=== PATIENT | male | born 1950 | race Caucasian/White ===

== ENCOUNTER 2017-10-21 12:50 | Emergency (ER) | payer OTHER, MEDICARE ==
--- NOTE | 2017-10-21 14:00 | ER Document Report ---
ED Medical Screen (RME) - General Chief Complaint: Leg Swelling Stated Complaint: LEG PROBLEM Time Seen by Provider: 10/21/17 13:54 Notes: 67-year-old male patient who moved down here just recently. Reports New Year's Silva he bumped his right anterior mattson with a moving [place] a couple times. Since then he has developed pain, redness, swelling. He was in urgent care today and sent to the emergency room to rule out blood clots. There is no history of fever. TRAVEL OUTSIDE OF THE [place] IN LAST 30 DAYS: No - Related Data Allergies/Adverse Reactions: No Known Allergies Allergy (Verified 10/21/17 12:51) Home Medications: Current Home Medications Aspirin [Aspirin 81 mg Chewable Tablet] 81 mg PO DAILY 10/21/17 [History] Atorvastatin Calcium [Lipitor 80 mg Tablet] 80 mg PO DAILY 10/21/17 [History] Metoprolol Tartrate 12.5 mg PO BID 10/21/17 [History] Omeprazole 20 mg PO QAM 10/21/17 [History] Pyridoxine HCl 50 mg PO DAILY 10/21/17 [History] Physical Exam - Vital signs Vitals: Temp Pulse Resp BP Pulse Ox 98.3 F 74 14 167/78 H 98 10/21/17 12:55 10/21/17 12:55 10/21/17 12:55 10/21/17 12:55 10/21/17 12:55 Course - Vital Signs Vital signs: Temp Pulse Resp BP Pulse Ox 98.3 F 74 14 167/78 H 98 10/21/17 12:55 10/21/17 12:55 10/21/17 12:55 10/21/17 12:55 10/21/17 12:55
[2017-10-21 14:27] LABS: ABSOLUTE BASOPHILS # (AUTO) 0.1 10^3/uL (0.0-0.2); ABSOLUTE EOSINOPHILS # (AUTO) 0.2 10^3/uL (0.0-0.6); ABSOLUTE MONOCYTES (AUTO) 0.5 10^3/uL (0.1-1.4); ABSOLUTE NEUT (AUTO) 3.9 10^3/uL (1.7-8.2); EOSINOPHILS % (AUTO) 3.5 % (0-6); HEMATOCRIT 45.7 % (37.9-51.0); LYMPHOCYTES % (AUTO) 29.4 % (13-45); MEAN CORPUSCULAR HEMOGLOBIN 34.1 pg (27.0-33.4); MEAN CORPUSCULAR VOLUME 98 fl (80-97); MONOCYTES % (AUTO) 7.7 % (3-13); PLATELET COUNT 208 10^3/uL (150-450); RED BLOOD COUNT 4.68 10^6/uL (4.35-5.55); RED CELL DISTRIBUTION WIDTH 12.8 % (11.5-14.0); SEGMENTED NEUTROPHILS % (AUTO) 58.4 % (42-78); TOTAL CELLS COUNTED % (AUTO) 100 %; WHITE BLOOD COUNT 6.7 10^3/uL (4.0-10.5)
[2017-10-21 14:44] LABS: ALANINE AMINOTRANSFERASE 41 U/L (21-72); ALBUMIN 4.6 g/dL (3.5-5.0); ALKALINE PHOSPHATASE 86 U/L (38-126); ANION GAP 10 (5-19); ASPARTATE AMINO TRANSFERASE 32 U/L (17-59); BILIRUBIN,DIRECT 0.4 mg/dL (0.0-0.4); BILIRUBIN,TOTAL 1.9 mg/dL (0.2-1.3); BLOOD UREA NITROGEN 11 mg/dL (7-20); CALCIUM 10.2 mg/dL (8.4-10.2); CARBON DIOXIDE 32 mmol/L (22-30); CHLORIDE 100 mmol/L (98-107); GLUCOSE 112 mg/dL (75-110); POTASSIUM 4.6 mmol/L (3.6-5.0); SODIUM 141.6 mmol/L (137-145); TOTAL PROTEIN 7.7 g/dL (6.3-8.2)
--- NOTE | 2017-10-21 15:25 | ER Document Report ---
ED Extremity Problem, Lower - General Chief Complaint: Leg Swelling Stated Complaint: LEG PROBLEM Time Seen by Provider: 10/21/17 13:54 Notes: Patient is a 67-year-old male, past medical history hypertension, hyperlipidemia , presents with 2 days of right mattson pain and calf swelling. He bumped his right mattson against a moving [place] last week. He was in the urgent care today and sent to the ER to rule out a possible blood clot. He denies numbness, tingling, difficulty walking, open wounds, history of blood clots, fevers, chest pain, shortness of breath or hemoptysis. TRAVEL OUTSIDE OF THE [place] IN LAST 30 DAYS: No - Related Data Allergies/Adverse Reactions: No Known Allergies Allergy (Verified 10/21/17 12:51) Home Medications: Current Home Medications Aspirin [Aspirin 81 mg Chewable Tablet] 81 mg PO DAILY 10/21/17 [History] Atorvastatin Calcium [Lipitor 80 mg Tablet] 80 mg PO DAILY 10/21/17 [History] Metoprolol Tartrate 12.5 mg PO BID 10/21/17 [History] Omeprazole 20 mg PO QAM 10/21/17 [History] Pyridoxine HCl 50 mg PO DAILY 10/21/17 [History] Past Medical History - General Information source: Patient - Social History Smoking Status: Never Smoker Chew tobacco use (# tins/day): No Frequency of alcohol use: None Drug Abuse: None Family History: Reviewed & Not Pertinent Patient has suicidal ideation: No Patient has homicidal ideation: No - Past Medical History Cardiac Medical History: Reports: Hx Hypercholesterolemia, Hx Hypertension Renal/ Medical History: Denies: Hx Peritoneal Dialysis Musculoskeltal Medical History: Reports Hx Arthritis Past Surgical History: Reports: Hx Appendectomy, Hx Cholecystectomy, Hx Orthopedic Surgery - hip 2017 Review of Systems - Review of Systems Notes: REVIEW OF SYSTEMS: CONSTITUTIONAL: -fevers, -chills EENT: -eye pain, -difficulty swallowing, -nasal congestion CARDIOVASCULAR: -chest pain, -syncope. RESPIRATORY: -cough, -SOB GASTROINTESTINAL: -abdominal pain, -nausea, -vomiting, -diarrhea GENITOURINARY: -dysuria, -hematuria MUSCULOSKELETAL: +right calf pain and swelling, -back pain, -neck pain SKIN: -rash or skin lesions. HEMATOLOGIC: -easy bruising or bleeding. LYMPHATIC: -swollen, enlarged glands. NEUROLOGICAL: -altered mental status or loss of consciousness, -headache, - neurologic symptoms PSYCHIATRIC: -anxiety, -depression. ALL OTHER SYSTEMS REVIEWED AND NEGATIVE. Physical Exam - Vital signs Vitals: Temp Pulse Resp BP Pulse Ox 98.3 F 74 14 167/78 H 98 10/21/17 12:55 10/21/17 12:55 10/21/17 12:55 10/21/17 12:55 10/21/17 12:55 - Notes Notes: PHYSICAL EXAMINATION: GENERAL: Well-appearing, well-nourished and in no acute distress. HEAD: Atraumatic, normocephalic. EYES: Pupils equal round and reactive to light, extraocular movements intact, sclera anicteric, conjunctiva are normal. ENT: nares patent, oropharynx clear without exudates. Moist mucous membranes. NECK: Normal range of motion, supple without lymphadenopathy LUNGS: Breath sounds clear to auscultation bilaterally and equal. No wheezes rales or rhonchi. HEART: Regular rate and rhythm without murmurs ABDOMEN: Soft, nontender, normoactive bowel sounds. No guarding, no rebound. No masses appreciated. EXTREMITIES: Swelling of right calf with mild pretibial erythema. Strong DP and PT pulses, sensation intact. Able to wiggle toes. Normal range of motion. No cyanosis. NEUROLOGICAL: Cranial nerves grossly intact. Normal speech, normal gait. Normal sensory and motor exams. PSYCH: Normal mood, normal affect. SKIN: Mild erythema and ecchymosis over pre-tibial region, no open wounds. Course - Re-evaluation Re-evalutation: Spoke to radioactivity technician and no DVT seen. Labs are unremarkable. Instructed patient about contusion management with anti-inflammatories and ice packs. Also told him that if his swelling does not improve, he should have a repeat ultrasound in 2 weeks to assess for the presence of a possible DVT. Strong distal pulses and no evidence of arterial occlusion. - Vital Signs Vital signs: Temp Pulse Resp BP Pulse Ox 98.3 F 74 14 167/78 H 98 10/21/17 12:55 10/21/17 12:55 10/21/17 12:55 10/21/17 12:55 10/21/17 12:55 - Laboratory Result Diagrams: 10/21/17 14:10 10/21/17 14:10 Laboratory results interpreted by me: 10/21/17 10/21/17 14:10 14:10 MCV 98 H MCH 34.1 H Carbon Dioxide 32 H Glucose 112 H Total Bilirubin 1.9 H - Diagnostic Test Radiology reviewed: Image reviewed, Reports reviewed Radiology results interpreted by me: SHAW[place] US: No DVT seen. Discharge - Discharge Clinical Impression: Contusion of right lower leg Qualifiers: Encounter type: initial encounter Qualified Code(s): S80.11XA - Contusion of right lower leg, initial encounter Condition: Stable Disposition: HOME, SELF-CARE Additional Instructions: Contusion Your injury has resulted in a contusion -- a crushing of the deep tissues. No injury to important structures was detected during the physician's exam. Contusions vary in the amount of pain they cause, and in the length of time required for healing. Typically, the area will become bruised, and will remain painful to touch for two or three weeks. However, most patients are back to working and playing within a few days. After the initial period of rest and cold-packs, your symptoms (together with the doctor's recommendations) will determine how rapidly you can get back to full activity. Usually this means "do what feels okay, but don't do things that hurt." If re-examination was recommended, it's important to follow up as instructed. Call the doctor or return any time if pain increases, if swelling becomes severe, if you develop numbness or weakness in an injured extremity, or if any other alarming symptoms occur. Forms: Elevated Blood Pressure
--- NOTE | 2017-10-21 16:53 | RADIOLOGY REPORT (SQ) ---
EXAM DESCRIPTION: VENOUS UNILATERAL LOWER COMPLETED DATE/TIME: 10/21/2017 4:27 pm REASON FOR STUDY: right leg swelling COMPARISON: None. TECHNIQUE: Dynamic and static lobato scale and color images acquired of the right leg venous system. S elected spectral images acquired with additional compression and augmentation maneuvers. The contrala teral common femoral vein and saphenofemoral junction were also imaged. Images stored on PACS. LIMITATIONS: None. FINDINGS: COMMON FEMORAL: Normal phasicity, compression and augmentation. No visualized echogenic ma terial on lobato scale. No defects on color images. FEMORAL: Normal compression and augmentation. No visualized echogenic material on lobato scale. No defe cts on color images. POPLITEAL: Normal compression, augmentation. No visualized echogenic material on lobato scale. No defec ts on color images. CALF VESSELS: Normal compression, augmentation. No visualized echogenic material on lobato scale. No de fects on color images. GSV and SSV: Normal compression, augmentation. No visualized echogenic material on lobato scale. No def ects on color images. ANY DEEP VENOUS INSUFFICIENCY: Not evaluated. ANY EVIDENCE OF POPLITEAL CYST: No. OTHER: No other significant finding. CONTRALATERAL COMMON FEMORAL VEIN AND SAPHENOFEMORAL JUNCTION: Normal phasicity, compression and augmentation. No visualized echogenic material on lobato scale. No de fects on color images. IMPRESSION: NO EVIDENCE OF DVT OR SVT IN THE RIGHT LEG. TECHNICAL DOCUMENTATION: JOB ID: [id number] [employer]- All Rights Reserved
[2017-10-21 16:56] VITALS: BP 159/88
== END 2017-10-21 16:55 | disposition home or self-care (01) ==
LOC: ER 12:50
DX: S80.11XA Contusion of right lower leg, initial encounter (principal); M79.661 Pain in right lower leg; W22.8XXA Striking against or struck by other objects, initial encounter; I10 Essential (primary) hypertension
CPT/HCPCS: 36415; 80053; 85025; 87040; 93971; 99284